=== PATIENT | female | born 1960 | race African-American/Black ===

== ENCOUNTER 2017-08-03 18:33 | Emergency (ER) | payer MEDICAID ==
[~2017-08-03] VITALS: Ht 165.1 cm; Wt 60.0 kg
[~2017-08-03 18:33] MED LIST: AMLO5TAB4; ASPI-1160; CALC-1042; FERR134T2; LOT10
[2017-08-03] MEDS ORDERED: IBUPROFEN 600MG TABLET PO ONE (21:45)
[2017-08-03 21:50] VITALS: BP 126/78
== END 2017-08-03 22:11 | disposition home or self-care (01) ==
LOC: ER 18:38
DX: M25.512 Pain in left shoulder (principal); M25.572 Pain in left ankle and joints of left foot; M25.522 Pain in left elbow; W01.0XXA Fall on same level from slipping, tripping and stumbling without subsequent striking against object, initial encounter; Y93.89 Activity, other specified; Y92.89 Other specified places as the place of occurrence of the external cause; Z79.82 Long term (current) use of aspirin; I10 Essential (primary) hypertension; E78.00 Pure hypercholesterolemia, unspecified; Z86.73 Personal history of transient ischemic attack (TIA), and cerebral infarction without residual deficits
CPT/HCPCS: 73030; 73080; 73610; 99284; A4565